=== PATIENT | male | born 1995 | race Caucasian/White ===

== ENCOUNTER 2019-04-12 20:30 | Emergency (ER) | payer SELFPAY ==
[~2019-04-12] VITALS: Ht 180.3 cm; Wt 117.9 kg
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
[2019-04-12 20:44] VITALS: BP 117/60
[2019-04-12] MEDS ORDERED: PRED50TA PO (21:23)
[2019-04-12] MEDS ORDERED: FLUT9.9S NS (21:23)
[2019-04-12] MEDS ORDERED: predniSONE 20 MG TABLET PO ONE (21:30)
--- NOTE | 2019-04-12 21:51 | RAD ---
CT scan of the paranasal sinuses without contrast 04/12/2019 CLINICAL HISTORY: Congestion and right-sided hearing loss. TECHNIQUE: Unenhanced, contiguous, 0.625 mm axial sections were obtained through the paranasal sinuses. 3 mm reconstructed sagittal, axial and coronal images were obtained. One or more of the following individualized dose reduction techniques were utilized for this study: 1. Automated exposure control. 2. Adjustment of the mA and/or kV according to patient size. 3. Use of iterative reconstruction technique. FINDINGS: Mild mucosal thickening is seen scattered throughout the ethmoid air cells bilaterally and the right anterior aspect of the sphenoid sinus. No air-fluid level is seen. The ostiomeatal units are patent bilaterally. There are small bilateral mastoid effusions. The middle ear cavities are well aerated and are clear. There is a moderate sized right nic bullosa. IMPRESSION: 1. Mild mucosal thickening is seen involving the ethmoid air cells bilaterally along with the sphenoid sinus. No air-fluid level is seen. 2. Small bilateral mastoid effusions. Electronically signed by: Saurav Mariano MD (04/12/2019 9:49 PM) [facility]
[2019-04-12] MEDS ORDERED: CEPH-264 PO (22:14)
[2019-04-12] MEDS ORDERED: cefTRIAXone IM 1 GM VIAL IM ONE (22:15)
[2019-04-12] MEDS ORDERED: diphenhydrAMINE HCL 25 MG CAPSULE PO ONE (22:15)
[2019-04-12] MEDS ORDERED: cefTRIAXone SODIUM 1 GM VIAL ONE (22:19)
== END 2019-04-12 22:40 | disposition home or self-care (01) ==
LOC: ER 20:30
DX: H91.91 Unspecified hearing loss, right ear (principal); J32.2 Chronic ethmoidal sinusitis; J32.3 Chronic sphenoidal sinusitis; H74.8X3 Other specified disorders of middle ear and mastoid, bilateral
CPT/HCPCS: 70486; 96372; 99284; J0696; J7512; Q0163

== ENCOUNTER 2019-05-11 14:40 | Emergency (ER) | payer SELFPAY ==
[~2019-05-11] VITALS: Ht 180.3 cm; Wt 136.6 kg
[~2019-05-11 14:40] MED LIST: CEPH-264 PO; FLUT9.9S NS; PRED50TA PO
[2019-05-11] MEDS ORDERED: IV NORMAL SALINE 1,000ML 1,000 ML IV SCH (15:28)
[2019-05-11] MEDS ORDERED: KETOROLAC 30 MG/ML VIAL. IV ONE (15:30)
--- NOTE | 2019-05-11 15:32 | PHYS DOC ---
Past History Past Medical History: Asthma Past Surgical History: No Surgical History Smoking: Non-smoker Alcohol Use: Occasionally Drug Use: None Adult General Chief Complaint Chief Complaint: ABDOMINAL PAIN HPI HPI Patient is a 23-year-old male presents with several days of right-sided abdominal pain that waxes and wanes. No radiation of the discomfort. Nothing seems to make it better or worse. No home medicines have been taken. These episodes last a to 10 minutes at a time. No blood in the urine. No fever. No previous abdominal surgical history. Pain is moderate to severe when it comes on. He has been on antibiotics for the past several weeks for sinusitis. Currently on Augmentin for the past 14 days prescribed by an ENT physician. There is some diarrhea with this.[] Review of Systems Review of Systems Constitutional: Denies fever or chills [] Eyes: Denies change in visual acuity, redness, or eye pain [] HENT: Denies nasal congestion or sore throat [] Respiratory: Denies cough or shortness of breath [] Cardiovascular: No chest pain or palpitations[] GI: See history of present illness[] : Denies dysuria or hematuria [] Musculoskeletal: Denies back pain or joint pain [] Integument: Denies rash or skin lesions [] Neurologic: Denies headache, focal weakness or sensory changes [] Endocrine: Denies polyuria or polydipsia [] All other systems were reviewed and found to be within normal limits, except as documented in this note. Allergies Allergies Allergies Coded Allergies Type Severity Reaction Last Updated Verified No Known Drug Allergies 05/11/19 No Physical Exam Physical Exam Constitutional: Well developed, well nourished, no acute distress, non-toxic appearance. [] HENT: Normocephalic, atraumatic, bilateral external ears normal, oropharynx moist, no oral exudates, nose normal. [] Eyes: PERRLA, EOMI, conjunctiva normal, no discharge. [] Neck: Normal range of motion, no tenderness, supple, no stridor. [] Cardiovascular:Heart rate regular rhythm, no murmur [] Lungs & Thorax: Bilateral breath sounds clear to auscultation [] Abdomen: Bowel sounds normal, soft, no tenderness, no masses, no pulsatile masses. [] Skin: Warm, dry, no erythema, no rash. [] Back: No tenderness, no CVA tenderness. [] Extremities: No tenderness, no cyanosis, no clubbing, ROM intact, no edema. [] Neurologic: Alert and oriented X 3, normal motor function, normal sensory function, no focal deficits noted. [] Psychologic: Affect normal, judgement normal, mood normal. [] Current Patient Data Vital Signs Vital Signs Date Time Temp Pulse Resp B/P (MAP) Pulse Ox O2 Delivery O2 Flow Rate FiO2 05/11/19 14:50 98.1 100 18 95 Room Air EKG EKG [] Radiology/Procedures Radiology/Procedures PROCEDURE: CT ABDOMEN PELVIS WO CONTRAST CT scan of the abdomen and pelvis without contrast 05/11/2019 CLINICAL HISTORY: Right-sided abdominal pain. TECHNIQUE: Unenhanced contiguous, 3 mm axial sections were obtained through the abdomen and pelvis. One or more of the following individualized dose reduction techniques were utilized for this study: 1. Automated exposure control. 2. Adjustment of the mA and/or kV according to patient size. 3. Use of iterative reconstruction technique. FINDINGS: Images through the lung bases are within normal limits. The liver, spleen, pancreas, and adrenal glands are within normal limits. Nonobstructing calculi are seen throughout both kidneys. These measure 1 to 2 mm in size. No ureteral calculus is seen. There is no evidence of obstruction of either collecting system. The abdominal aorta tapers normally. The gallbladder is contracted. No free fluid or free air is seen within the abdomen. There is no evidence of bowel obstruction. The appendix is well-visualized and is within normal limits. Images through the pelvis demonstrate the urinary bladder to be contracted. No distal ureteral calculus is seen. No free fluid is noted. A 2.7 cm oval-shaped somewhat low-attenuation structure is seen within the anterolateral left pelvis which may represent a lymphocele. No free fluid is seen. Minimal S-shaped curvature of the thoracolumbar spine is noted. IMPRESSION: No acute abnormality is seen. [] Course & Med Decision Making Course & Med Decision Making Pertinent Labs and Imaging studies reviewed. (See chart for details) ED course: Patient arrived, was placed in bed, and tolerated exam well. He was given IV fluids as well as pain medicines. These improved both his heart rate as well as discomfort. He was transported to and from radiology with any compl ications. After the return of lab and imaging findings, these were discussed with the patient voiced understanding. All questions were answered. He was discharged in improved condition. Medical decision making: There is no evidence of obstruction, perforation, appendicitis, cholecystitis, kidney stone, pyelonephritis, pancreatitis. Nontoxic patient.[] Dragon Disclaimer Dragon Disclaimer This electronic medical record was generated, in whole or in part, using a voice recognition dictation system. Departure Departure: Impression: Primary Impression: Right sided abdominal pain Disposition: HOME, SELF-CARE Condition: IMPROVED Referrals: PCP,AJIT (PCP) Patient Instructions: Abdominal Pain Additional Instructions: Drink plenty of fluids. Follow-up with your regular doctor in 2 days. If you do not have regular doctor list of local clinics will be provided for you. Return to the ER if worsening pain, unable to tolerate liquids, or any other concerns. Scripts Metoclopramide Hcl (REGLAN) 10 Mg Tablet 10 MG PO QID for nausea and vomiting, #30 TAB Prov: MARIEL OCAMPO DO 05/11/19 Meloxicam (MELOXICAM) 7.5 Mg Tablet 7.5 MG PO DAILY for PAIN, #20 TAB Prov: MARIEL OCAMPO DO 05/11/19 Hyoscyamine Sulfate (LEVSIN) 0.125 Mg Tablet 0.125 MG PO QID for abdominal pain/cramping, #30 TAB Prov: MARIEL OCAMPO DO 05/11/19 MARIEL OCAMPO DO May 11, 2019 15:32
[2019-05-11 16:21] LABS: BASO # 0.1 x10^3/uL (0.0-0.2); BASO % 1 % (0-3); EOS # 0.3 x10^3/uL (0.0-0.7); EOS % 3 % (0-3); HEMOGLOBIN 15.3 g/dL (13.0-17.5); LYMPH # 3.1 x10^3/uL (1.0-4.8); LYMPH % 26 % (24-48); MEAN CORPUSCULAR HEMOGLOBIN 30 pg (25-35); MEAN CORPUSCULAR HGB CONC 34 g/dL (31-37); MEAN CORPUSCULAR VOLUME 87 fL (79-100); MONO # 1.5 x10^3/uL (0.0-1.1); MONO % 12 % (0-9); NEUT % 58 % (31-73); PLATELET COUNT 281 x10^3/uL (140-400); RED BLOOD COUNT 5.17 x10^6/uL (4.30-5.70); RED CELL DISTRIBUTION WIDTH 14.1 % (11.5-14.5); WHITE BLOOD COUNT 12.1 x10^3/uL (4.0-11.0)
[2019-05-11 16:35] LABS: ALBUMIN/GLOBULIN RATIO 1.1 (1.0-1.7); CALCIUM 9.4 mg/dL (8.5-10.1); CREATININE 1.2 mg/dL (0.7-1.3); GFR 76.4; POTASSIUM 4.1 mmol/L (3.5-5.1); TOTAL BILIRUBIN 0.4 mg/dL (0.2-1.0); TOTAL PROTEIN 7.7 g/dL (6.4-8.2)
[2019-05-11 16:46] LABS: COLOR,URINE AMBER
--- NOTE | 2019-05-11 16:46 | RAD ---
CT scan of the abdomen and pelvis without contrast 05/11/2019 CLINICAL HISTORY: Right-sided abdominal pain. TECHNIQUE: Unenhanced contiguous, 3 mm axial sections were obtained through the abdomen and pelvis. One or more of the following individualized dose reduction techniques were utilized for this study: 1. Automated exposure control. 2. Adjustment of the mA and/or kV according to patient size. 3. Use of iterative reconstruction technique. FINDINGS: Images through the lung bases are within normal limits. The liver, spleen, pancreas, and adrenal glands are within normal limits. Nonobstructing calculi are seen throughout both kidneys. These measure 1 to 2 mm in size. No ureteral calculus is seen. There is no evidence of obstruction of either collecting system. The abdominal aorta tapers normally. The gallbladder is contracted. No free fluid or free air is seen within the abdomen. There is no evidence of bowel obstruction. The appendix is well-visualized and is within normal limits. Images through the pelvis demonstrate the urinary bladder to be contracted. No distal ureteral calculus is seen. No free fluid is noted. A 2.7 cm oval-shaped somewhat low-attenuation structure is seen within the anterolateral left pelvis which may represent a lymphocele. No free fluid is seen. Minimal S-shaped curvature of the thoracolumbar spine is noted. IMPRESSION: No acute abnormality is seen. Electronically signed by: Saurav Mariano MD (05/11/2019 4:43 PM) [facility]
[2019-05-11 16:47] LABS: BACTERIA,URINE 0 /HPF (0-FEW); BILIRUBIN,URINE NEG (NEG); CLARITY,URINE HAZY; GLUCOSE,URINE NEG (NEG); NITRITE,URINE NEG (NEG); RBC,URINE OCC /HPF (0-2); SQUAMOUS EPITHELIAL CELL,UR OCC /LPF; UROBILINOGEN,URINE 0.2 mg/dL (0.2 mg/dL); WBC,URINE OCC /HPF (0-4)
[2019-05-11 17:05] LABS: PLT ESTIMATE ADEQUATE (ADEQUATE)
[2019-05-11 17:06] LABS: PLATELET CLUMP PRESENT
[2019-05-11] MEDS ORDERED: MELO7.5T29 PO (17:16)
[2019-05-11] MEDS ORDERED: METO10TA81 PO (17:16)
[2019-05-11] MEDS ORDERED: HYOS0.1264 PO (17:16)
[2019-05-11 17:44] VITALS: BP 121/64
== END 2019-05-11 17:48 | disposition home or self-care (01) ==
LOC: ER 14:40
DX: R10.9 Unspecified abdominal pain (principal); J45.909 Unspecified asthma, uncomplicated
CPT/HCPCS: 36415; 74176; 80053; 81001; 83690; 85025; 96374; 99285; J1885; J7030

== ENCOUNTER 2021-02-27 02:20 | Emergency (ER) | payer BC ==
[~2021-02-27] VITALS: Ht 180.3 cm; Wt 136.6 kg
[~2021-02-27 02:20] MED LIST changes: +HYOS0.1264 PO; +MELO7.5T29 PO; +METO10TA81 PO
--- NOTE | 2021-02-27 02:46 | PHYS DOC ---
Past History Past Medical History: Asthma Past Surgical History: No Surgical History Smoking: Non-smoker Alcohol Use: Occasionally Drug Use: None Adult General Chief Complaint Chief Complaint: EYE PROBLEMS HPI HPI Patient is a 25-year-old male who presents with a chief complaint of what he calls floaters in both eyes. States has been going on for several months and is painless. Denies any change in his vision. States he has not seen an marketer or tenter frame back tender for this. Denies any recent traumas, travels, fevers, headache, chest pain, shortness of breath, abdominal pain, nausea, vomiting. Denies any numbness/weakness/tingling. Denies any trouble sitting, standing or walking. Review of Systems Review of Systems Review of systems otherwise unremarkable except noted in HPI Allergies Allergies Allergies Coded Allergies Type Severity Reaction Last Updated Verified No Known Drug Allergies 05/11/19 No Physical Exam Physical Exam Constitutional: Well developed, well nourished, no acute distress, non-toxic appearance. [] HENT: Normocephalic, atraumatic, Eyes: PERRLA, EOMI, conjunctiva normal, no discharge. [] Cardiovascular:Heart rate regular rhythm, no murmur [] Lungs & Thorax: Bilateral breath sounds clear to auscultation [] Skin: Warm, dry, no erythema, no rash. [] Extremities: No tenderness, no cyanosis, no clubbing, ROM intact, no edema. [] Neurologic: Alert and oriented X 3, normal motor function, normal sensory function, able to sit, stand and walk without issue no focal deficits noted. Visual syed normal, with right was 20/20, left 20/25, bilaterally 20/20 [] Psychologic: Affect normal, judgement normal, mood normal. [] EKG EKG [] Radiology/Procedures Radiology/Procedures [] Heart Score C/O Chest Pain: No Risk Factors: Risk Factors: DM, Current or recent (<one month) smoker, HTN, HLP, family history of CAD, obesity. Risk Scores: Risk Factors: DM, Current or recent (<one month) smoker, HTN, HLP, family history of CAD, obesity. Course & Med Decision Making Course & Med Decision Making Patient is a 25-year-old male who presents with a chief complaint of bilateral floaters for several months Vital signs not concerning. Physical exam noted above. Visual exam normal. Discussed all findings with patient and advised following up with an tenter frame back tender or marketer soon as possible. Gave contact information for local practitioners. Advised to call first thing Sunday morning. Strict return precautions to the emergency department. Patient grateful, verbalized understanding and agreed with plan of discharge. [] Dragon Disclaimer Dragon Disclaimer This electronic medical record was generated, in whole or in part, using a voice recognition dictation system. Departure Departure: Impression: Primary Impression: Floaters in visual field Disposition: HOME / SELF CARE / HOMELESS Condition: GOOD Referrals: PCP,AJIT (PCP) DOMO JUAREZ Additional Instructions: Thank you for coming into the emergency department tonight and allowing us to take care of you. As discussed your visual exam and acuity are not concerning. The rest of your physical exam is reassuring as well. It is recommended to you that you follow-up with an marketer or tenter frame back tender as soon as possible and set up a follow-up appointment. There are 2 main practices here in [place], [facility] [address] and [facility] on . At [phone] the [facility] and [facility] at [phone] Please call 1 or both of these as soon as possible to set up a follow-up appointment. Please come back to the ED with new or concerning symptoms as discussed. NEIL STEARNS MD Feb 27, 2021 02:46
== END 2021-02-27 03:00 | disposition home or self-care (01) ==
LOC: ER 02:20
DX: H43.393 Other vitreous opacities, bilateral (principal); J45.909 Unspecified asthma, uncomplicated
CPT/HCPCS: 99282